=== PATIENT | female | born 1950 | race Caucasian/White ===

== ENCOUNTER → 2016-11-27 | Outpatient (CLI) | payer BC ==
[~2016-11-27] MED LIST: ARTH650T PO; BENA25CA2 PO; BUTACAP78 PO; CLIN300C2 PO; COLA100C3 PO; DITR5TAB PO; DOXY100C PO; GAS-80CH PO; HYDR12.55 PO; MOME50SP; PERCOCET PO; PRED10TA PO; PRED20TA PO; SALI0.653; TUMS500C PO; VITA400T13 PO; VYTO10TA2 PO; [UNRECOGNIZED DRUG - CODE] PO; [UNRECOGNIZED DRUG - CODE] PO
--- NOTE | 2016-11-27 16:15 | REPMRS ---
Patient History The patient states she had a clinical breast exam in 12/06 Patient is postmenopausal, has history of cervical cancer at age 41, and is nulliparous. Family history of colorectal cancer in father at age 64, breast cancer in sister at age 29, colorectal cancer in mother at age 50 or over, breast cancer in maternal aunt at age 65, unknown cancer in maternal grandmother at age 50 or over, and unknown cancer in maternal uncle under age 50. Took hormonal contraceptives for 12 years. Took unspecified hormones for 10 years. Digital Woman Screen Mammo: November 27, 2016 - Exam #: [id number] Bilateral CC and MLO view(s) were taken. Technologist: Paulina Fernandez, Technologist Prior study comparison: September 08, 2014, digital woman screen mammo performed at [facility]. June 09, 2013, bilateral bilat screen digital mammo, performed at [facility] ([facility] FINDINGS: There are scattered fibroglandular densities. There has been no change in the appearance of the mammogram from the prior studies. There is a mild amount of residual fibroglandular tissue which is fairly symmetric. There is no interval development of dominant mass, architectural distortion, or clustered microcalcification suggestive of malignancy. ASSESSMENT: BI-RADS/ACR category 1 mammogram. Negative. Recommendation Routine screening mammogram in 1 year (for women over age 40). This mammogram was interpreted with the aid of an FDA-approved computer-aided dectection system. Electronically Signed By: Natalio Anderson MD 11/27/16 [id number]
== END ==
LOC: M WHC 13:55
PROVIDERS: ATTEND Nurse Practitioner Family
DX: Z12.31 Encounter for screening mammogram for malignant neoplasm of breast (principal); Z78.0 Asymptomatic menopausal state; Z80.3 Family history of malignant neoplasm of breast; Z80.0 Family history of malignant neoplasm of digestive organs; Z85.41 Personal history of malignant neoplasm of cervix uteri; Z92.0 Personal history of contraception; Z92.29 Personal history of other drug therapy

== ENCOUNTER → 2017-02-16 | Outpatient (REF) | payer OTHER ==
[~2017-02-16] MED LIST changes: -ARTH650T PO; +ARTH650T11 PO; +CLEO300C2 PO; -COLA100C3 PO; +COLA100C5 PO; +CRAN250C2 PO; +CRAN400C PO; +MULT1TAB10 PO; +MULTTAB24 PO; +NAPR500T3 PO; +SALI0.6523; -SALI0.653; +SIMV20TA2 PO; +TYLE325T5 PO; +TYLE650T35 PO; +VITA200016 PO; -VYTO10TA2 PO; +VYTO10TA25 PO; +ZETI10TA30 PO; +[UNRECOGNIZED DRUG - CODE] PO; +[UNRECOGNIZED DRUG - OTHER] PO
== END ==
LOC: M SMT 16:57
PROVIDERS: ATTEND Urology
DX: N39.0 Urinary tract infection, site not specified (principal)

== ENCOUNTER 2017-02-21 11:25 | Outpatient (CLI) | payer BC, OTHER ==
[~2017-02-21] VITALS: Ht 165.1 cm; Wt 87.1 kg
[~2017-02-21 11:25] MED LIST changes: -CRAN400C PO; +LIDOCAINE 2% INJ 100 MG/5 ML SDV (FOR ANES.) As Ordered ONE; -MULTTAB24 PO; +NS 1,000 ML IV ONE; +PROPOFOL 200 MG/20 ML VIAL As Ordered ONE; -TYLE325T5 PO; -TYLE650T35 PO; -VITA200016 PO; -[UNRECOGNIZED DRUG - CODE] PO
[2017-02-21] MEDS ORDERED: PROPOFOL 200 MG/20 ML VIAL As Ordered ONE ×2 (12:43→12:46)
--- NOTE | 2017-02-21 12:57 | ROOR ---
Patient Name: Rhonda Marcos Procedure Date: 02/21/2017 12:28 PM Date of : 1950 Age: 66 Room: [facility] Gender: Female Note Status: Finalized Procedure: Total Colonoscopy to Cecum Indications: Colon cancer screening in patient at increased risk: Colorectal cancer in mother, Colon cancer screening in patient at increased risk: Colorectal cancer in father Providers: Jerome Johns MD Referring MD: SOL FERRARI DO Requesting Provider: Medicines: Monitored Anesthesia Care Complications: No immediate complications. Mild Diverticulitis. Procedure: Pre-Anesthesia Assessment: - The heart rate, respiratory rate, oxygen saturations, blood pressure, adequacy of pulmonary ventilation, and response to care were monitored throughout the procedure. The Colonoscope was introduced through the anus and advanced to the cecum, identified by appendiceal orifice and ileocecal valve. The colonoscopy was performed without difficulty. The patient tolerated the procedure well. The quality of the bowel preparation was excellent. Findings: The perianal and digital rectal examinations were normal. Non-bleeding internal hemorrhoids were found during retroflexion. The hemorrhoids were Grade I (internal hemorrhoids that do not prolapse). Multiple small and large-mouthed diverticula were found in the recto-sigmoid colon, sigmoid colon and descending colon. The exam was otherwise without abnormality on direct and retroflexion views. Localized mild inflammation characterized by congestion (edema), erythema and aphthous ulcerations was found in the recto-sigmoid colon. Impression: - Non-bleeding internal hemorrhoids. - Diverticulosis in the recto-sigmoid colon, in the sigmoid colon and in the descending colon. - The examination was otherwise normal on direct and retroflexion views. - Localized mild inflammation was found in the recto-sigmoid colon. - No specimens collected. - The exam was otherwise normal to the cecum. Recommendation: - Patient has a contact number available for emergencies. The signs and symptoms of potential delayed complications were discussed with the patient. Return to normal activities tomorrow. Written discharge instructions were provided to the patient. - High fiber diet. - Discharge patient to home. - Continue present medications. - Repeat colonoscopy in 5 years for screening purposes. - Return to referring physician. - The findings and recommendations were discussed with the patient's family. Jerome Johns MD Jerome Johns MD 02/21/2017 12:57:13 PM This report has been signed electronically. Number of Addenda: 0 Note Initiated On: 02/21/2017 12:28 PM Estimated Blood Loss: Estimated blood loss: none.
[2017-02-21 13:27] VITALS: BP 146/62
[2017-05-01] MEDS ORDERED: CRAN400C PO (13:20)
[2017-05-01] MEDS ORDERED: MULTTAB24 PO (13:20)
[2017-05-01] MEDS ORDERED: TYLE325T5 PO (13:20)
[2017-05-01] MEDS ORDERED: VITA200016 PO (13:20)
[2017-05-01] MEDS ORDERED: TYLE650T35 PO (13:20)
== END 2017-02-21 13:36 | disposition home or self-care (01) ==
LOC: M OPP 11:25
PROVIDERS: ATTEND Internal Medicine Gastroenterology
DX: Z12.11 Encounter for screening for malignant neoplasm of colon (principal); Z80.0 Family history of malignant neoplasm of digestive organs; K64.0 First degree hemorrhoids; K57.30 Diverticulosis of large intestine without perforation or abscess without bleeding; K52.9 Noninfective gastroenteritis and colitis, unspecified; I10 Essential (primary) hypertension; E78.5 Hyperlipidemia, unspecified; R01.1 Cardiac murmur, unspecified; E11.9 Type 2 diabetes mellitus without complications; M19.90 Unspecified osteoarthritis, unspecified site; G43.909 Migraine, unspecified, not intractable, without status migrainosus; Z85.828 Personal history of other malignant neoplasm of skin; Z78.0 Asymptomatic menopausal state; Z87.442 Personal history of urinary calculi; L71.9 Rosacea, unspecified; L65.9 Nonscarring hair loss, unspecified; Z86.19 Personal history of other infectious and parasitic diseases; Z80.3 Family history of malignant neoplasm of breast; Z88.1 Allergy status to other antibiotic agents; Z88.5 Allergy status to narcotic agent; Z91.048 Other nonmedicinal substance allergy status; Z91.040 Latex allergy status; Z88.8 Allergy status to other drugs, medicaments and biological substances; Z88.2 Allergy status to sulfonamides; Z88.0 Allergy status to penicillin

== ENCOUNTER → 2017-03-13 | Outpatient (REF) | payer OTHER ==
[~2017-03-13] MED LIST changes: +CRAN400C PO; -LIDOCAINE 2% INJ 100 MG/5 ML SDV (FOR ANES.) As Ordered ONE; +MULTTAB24 PO; -NS 1,000 ML IV ONE; -PROPOFOL 200 MG/20 ML VIAL As Ordered ONE; +TYLE325T5 PO; +TYLE650T35 PO; +VITA200016 PO; +[UNRECOGNIZED DRUG - CODE] PO
== END ==
LOC: M SMT 17:23
PROVIDERS: ATTEND Urology
DX: R31.0 Gross hematuria (principal)

== ENCOUNTER → 2017-03-15 | Outpatient (CLI) | payer BC, OTHER ==
[2017-03-15 13:43] LABS: ANION GAP 5 MEQ/L (8-16); BLOOD UREA NITROGEN 16 MG/DL (7-18); CALCIUM LEVEL 9.3 MG/DL (8.8-10.2); CARBON DIOXIDE LEVEL 32 MEQ/L (21-32); CHLORIDE LEVEL 106 MEQ/L (98-107); CREATININE FOR GFR 0.76 MG/DL (0.55-1.02); GLOMERULAR FILTRATION RATE > 60.0 (>45); GLUCOSE, FASTING 117 MG/DL (80-110); SODIUM LEVEL 143 MEQ/L (136-145)
== END ==
LOC: M SMT 11:44
PROVIDERS: ATTEND Urology
DX: R31.0 Gross hematuria (principal)

== ENCOUNTER → 2017-03-23 | Outpatient (CLI) | payer BC, OTHER ==
[~2017-03-23] MED LIST changes: +ISOVUE-370 76% 100ML VIAL (Q9967) As Ordered ONE
--- NOTE | 2017-03-23 18:54 | REP ---
CT urogram: CT without and with IV contrast. Without oral contrast. History: Gross hematuria. Comparison CT study is from May 06, 2014. CT contrast dose: 100 ml of intravenous Isovue 370. Findings: The left hip replacement is seen on digital director [employer] radiograph. The bowel gas pattern is unremarkable. The lung bases are clear except for some mild linear fibrosis. The liver and the spleen are normal in size, homogeneous in texture. The gallbladder and the pancreas are unremarkable. There is an 8 mm calculus at the right mid kidney, intrarenal. In the lower pole, there is a 5 mm calculus. No hydronephrosis is seen. There is a 3 mm calculus in the upper pole of the left kidney. No renal mass lesion is seen. The kidneys enhance symmetrically. No cyst is seen. Delayed scan images show no filling defect in either collecting system. The ureters describe a normal course to the bladder. No bladder mass lesion is appreciated. Small and large intestinal bowel loops are unremarkable. There are degenerative spondylosis changes in the lumbar spine. No abdominal wall defect is seen. Impression: Bilateral intrarenal nephrolithiasis as noted above. No hydronephrosis seen. No mass or cyst is observed. Signed by Chauncey Lorenzo MD 03/27/2017 08:18 A
== END ==
LOC: M RAD 12:32
PROVIDERS: ATTEND Urology
DX: R31.0 Gross hematuria (principal); N20.0 Calculus of kidney
CPT/HCPCS: 74178; Q9967

== ENCOUNTER → 2017-04-20 | Outpatient (CLI) | payer BC, OTHER ==
[~2017-04-20] MED LIST changes: -ISOVUE-370 76% 100ML VIAL (Q9967) As Ordered ONE
--- NOTE | 2017-04-20 15:48 | REP ---
MRI LUMBAR SPINE WITHOUT CONTRAST: HISTORY: Spinal stenosis. COMPARISON: 06/16/2015 Decreased signal intensity on T2-weighted images is present in the lumbar intervertebral discs. The discs are decreased in height. These findings are consistent with disc degeneration. A diffuse disc bulge is present at the L1-2 level. There is hypertrophy of the ligamenta flava and posterior articulating facets. There are 3 mm of retrolisthesis of L1 on 2. There is minimal compression of the thecal sac. The L1 nerves exit the neural foramina without compression. A diffuse disc bulge is present at the L2-3 level. There is hypertrophy of the ligamenta flava and posterior articulating facets. These findings produce minimal central canal stenosis. The L2 nerves exit the neural foramina without compression. A diffuse disc bulge is present at the L3-4 level. There is hypertrophy of the ligamenta flava and posterior articulating facets. These findings produce mild central canal stenosis. The L3 nerves exit the neural foramina without compression. A diffuse disc bulge and small central disc protrusion are present at the L4-5 level. There is hypertrophy of the ligamenta flava and posterior articulating facets. There are 5 mm of grade I spondylolisthesis of L4 on L5. These findings produce severe central canal stenosis. There is compression of the L4 nerves in the neural foramina. A diffuse disc bulge and small central disc protrusion are present at the L5-S1 level. The disc protrusion is decreased in size. There is minimal compression of the thecal sac. There is hypertrophy of the posterior articulating facets. There are 5 mm of grade 1 spondylolisthesis of L5 on S1. There is compression of the L5 nerves in the neural foramina. The conus medullaris is normal in appearance terminating at the level of the L1-2 intervertebral disc. Normal signal intensity is present in the lumbar vertebral bodies. IMPRESSION: 1. Diffuse disc bulge and retrolisthesis at the L1-2 level with minimal thecal sac compression. 2. Minimal central canal stenosis at the L2-3 level secondary to disc bulge, ligamentous and facet hypertrophy. 3. Mild central canal stenosis at the L3-4 level secondary to disc bulge, ligamentous and facet hypertrophy. 4. Severe central canal stenosis at the L4-5 level secondary to disc, bulge, ligamentous and facet hypertrophy and grade 1 spondylolisthesis. There is compression of the L4 nerves in the neural foramina. 5. Diffuse disc bulge and small disc protrusion at the L5-S1 level with minimal thecal sac compression. There is grade 1 spondylolisthesis of L5 on S1. There is compression of the L5 nerves in the neural foramina. The disc protrusion is decreased in size. There is no other significant change. Signed by Favian Dumont MD 04/20/2017 03:51 P
== END ==
LOC: M PLARAD 13:21
PROVIDERS: ATTEND Nurse Practitioner Family
DX: M51.37 Other intervertebral disc degeneration, lumbosacral region (principal)

== ENCOUNTER → 2017-04-27 | Outpatient (CLI) | payer BC, OTHER ==
[2017-04-27 12:38] LABS: MEAN CORPUSCULAR HEMOGLOBIN 30.3 pg (27.0-33.0); MEAN CORPUSCULAR HGB CONC 32.7 g/dl (32.0-36.5); MEAN CORPUSCULAR VOLUME 92.5 fl (80.0-96.0); RED CELL DISTRIBUTION WIDTH 12.9 % (11.5-14.5); WHITE BLOOD COUNT 7.7 10^3/uL (4.0-10.0)
[2017-04-27 12:46] LABS: INR 0.92
[2017-04-27 13:01] LABS: ANION GAP 8 MEQ/L (8-16); BLOOD UREA NITROGEN 16 MG/DL (7-18); CALCIUM LEVEL 9.2 MG/DL (8.8-10.2); CARBON DIOXIDE LEVEL 29 MEQ/L (21-32); CHLORIDE LEVEL 103 MEQ/L (98-107); CREATININE FOR GFR 0.63 MG/DL (0.55-1.02); GLOMERULAR FILTRATION RATE > 60.0 (>45); GLUCOSE, FASTING 93 MG/DL (80-110); POTASSIUM SERUM 4.4 MEQ/L (3.5-5.1); SODIUM LEVEL 140 MEQ/L (136-145)
--- NOTE | 2017-04-27 13:02 | REP ---
PA and lateral chest: Comparison is 06/30/2008. There are small focal zones of parenchymal scarring in the lung bases bilaterally, unchanged. The lung kwong otherwise clear. Cardiac size normal. The anaya and mediastinum are unremarkable. There is thoracic scoliosis convex right at the thoracolumbar junction, unchanged. Impression: No acute cardiopulmonary findings. Chronic fibro linear scarring in the lung bases is unchanged. Signed by Natalio Pichardo MD 04/27/2017 12:54 P
--- NOTE | 2017-04-27 17:41 | ECGEPIP ---
Stationary ECG Study [facility] Test Date: 2017-04-27 Pat Name: JAS GOOD Department: Room: - Gender: F Prosthetist: ZELDA : 1950 Requested By: LEONIE Yanes Order Number: [id number] Reading MD: Jaime Morin Measurements Intervals Rudy Rate: 57 P: 2 CA: 153 QRS: 9 QRSD: 96 T: 7 QT: 409 QTc: 401 Interpretive Statements SINUS BRADYCARDIA NO PRIOR Electronically Signed On 04-27-2017 17:41:06 EDT by Jaime Morin
== END ==
LOC: M LAB 11:27
PROVIDERS: ATTEND Urology
DX: Z01.818 Encounter for other preprocedural examination (principal)

== ENCOUNTER 2017-05-03 08:25 | Day surgery (SDC) | payer BC, OTHER ==
[~2017-05-03] VITALS: Ht 165.1 cm; Wt 87.5 kg
[~2017-05-03 08:25] MED LIST changes: -[UNRECOGNIZED DRUG - CODE] PO
[2017-05-03] MEDS ORDERED: LevoFLOXacin IV 500 MG in APPROPRIATE DILUENT 1 EA IV ONE (09:00)
[2017-05-03] MEDS ORDERED: LR 1,000 ML IV SCH ×2 (09:00→12:00)
[2017-05-03] MEDS ORDERED: [UNRECOGNIZED DRUG - CODE] PO (09:57)
[2017-05-03] MEDS ORDERED: fentaNYL 100 MCG/2 ML INJECTION (J3010) As Ordered ONE (10:12)
[2017-05-03] MEDS ORDERED: MIDAZOLAM INJ 2 MG/2 ML VIAL (J2250) As Ordered ONE (10:12)
[2017-05-03] MEDS ORDERED: PROPOFOL 200 MG/20 ML VIAL As Ordered ONE (10:12)
--- NOTE | 2017-05-03 10:50 | REP ---
KUB: Single view. History: Kidney stone. Comparison study: CT exam March 23, 2017. There is a 7 mm calcific opacity overlying the right mid kidney consistent with an infrarenal stone. A smaller calcification is seen at the lower pole on the right. There is a 2-3 mm calculus overlying the upper pole on the left. These findings correlate with the recent CT study. No ureteral stone is seen. The left hip is replaced. There are arthritic changes in the right hip and degenerative changes along with scoliosis is seen in the lumbar spine. Bowel gas pattern is normal. Psoas margins are intact. No sacral or SI joint abnormality is seen. Impression: Bilateral intrarenal nephrolithiasis. Signed by Chauncey Lorenzo MD 05/03/2017 11:59 A
[2017-05-03] MEDS ORDERED: ACETAMINOPHEN TAB 650MG DOSE (2X325MG) PO PRN (12:00)
[2017-05-03] MEDS ORDERED: PERCOCET 5MG/325MG TAB PO PRN (12:00)
[2017-05-03] MEDS ORDERED: ONDANSETRON 4MG/2ML VIAL (J2405) IV ONE (12:45)
[2017-05-03 13:15] VITALS: BP 118/57
--- NOTE | 2017-05-03 17:33 | RO ---
DATE OF PROCEDURE: 05/03/2017 PREPROCEDURE DIAGNOSIS: Right kidney stones. POSTPROCEDURE DIAGNOSIS: Right kidney stones. PROCEDURE: Right extracorporal shock wave lithotripsy. SURGEON: Dr. Kip Pimentel GRAPHIC DESIGN TEACHER: None ANESTHESIA: MAC. OPERATIVE INDICATIONS: This is a 66-year-old female with a long history of kidney stones. On recent imaging she was found to have two nonobstructing right kidney stones, the largest measuring 8 mm and another one 5 mm. It was recommended that she be brought to the operating room for the above listed procedure. DESCRIPTION OF PROCEDURE: The patient was brought to the operating room and MAC anesthesia was administered. Prophylactic antibiotics were infused. She was placed in the supine position in preparation for right sided extracorporal shock wave lithotripsy. Fluoroscopy was utilized to monitor stone position and fragmentation throughout the procedure. Shock waves were then delivered to both kidney stones ungated. There are no arrhythmias. The stones did appear to fragment well. After 2,500 shocks the procedure was concluded. The patient was then awakened from anesthesia and transported to the recovery room in stable condition. ESTIMATED BLOOD LOSS: 0 mL. COMPLICATIONS: None. SPECIMENS: None. PLAN: The patient will followup in the clinic in a few weeks with imaging prior to assess for residual stone burden. FERNANDA
== END 2017-05-03 13:35 | disposition home or self-care (01) ==
LOC: M SDC 08:25
PROVIDERS: ATTEND Urology
DX: N20.0 Calculus of kidney (principal); I10 Essential (primary) hypertension; E78.4 Other hyperlipidemia; Z79.899 Other long term (current) drug therapy; Z88.0 Allergy status to penicillin; Z88.2 Allergy status to sulfonamides; Z91.040 Latex allergy status; Z88.8 Allergy status to other drugs, medicaments and biological substances
CPT/HCPCS: 50590; 74000; J1956; J2250; J2405; J3010

== ENCOUNTER → 2017-12-13 | Outpatient (CLI) | payer MEDICARE, BC | LOC: M WHC 10:31 | DX: Z12.31 Encounter for screening mammogram for malignant neoplasm of breast (principal); Z01.419 Encounter for gynecological examination (general) (routine) without abnormal findings (principal); R92.8 Other abnormal and inconclusive findings on diagnostic imaging of breast; N63.0 Unspecified lump in unspecified breast | CPT/HCPCS: 77067 ==

== ENCOUNTER → 2017-12-20 | Outpatient (CLI) | payer MEDICARE, BC, OTHER | LOC: M RAD 12:13 | DX: N63.20 Unspecified lump in the left breast, unspecified quadrant (principal) | CPT/HCPCS: 77065 ==

== ENCOUNTER → 2018-02-25 | Outpatient (CLI) | payer MEDICARE, BC, OTHER ==
[2018-03-01 00:07] LABS: METANEPHRINE PLASMA 43 pg/mL (0-62); METANEPHRINE TOTAL URINE 171 ug/L (Undefined); METANEPHRINE URINE 188 ug/24 hr (45-290); NORMETANEPHRINE PLASMA 112 pg/mL (0-145); NORMETANEPHRINE TOTAL URINE 449 ug/L (Undefined); NORMETANEPHRINE URINE 494 ug/24 hr (82-500)
== END ==
LOC: M LAB 13:19
DX: L75 Apocrine sweat disorders (principal)
CPT/HCPCS: 84443

== ENCOUNTER → 2018-06-10 | Outpatient (CLI) | payer MEDICARE, BC, OTHER | LOC: M SMT 09:58 | DX: Z87.442 Personal history of urinary calculi (principal) | CPT/HCPCS: 74018; G0463 ==

== ENCOUNTER → 2018-06-24 | Outpatient (CLI) | payer MEDICARE, BC, OTHER | LOC: M RAD 09:13 | DX: R92.8 Other abnormal and inconclusive findings on diagnostic imaging of breast (principal); Z80.3 Family history of malignant neoplasm of breast | CPT/HCPCS: 77065 ==

== ENCOUNTER → 2018-12-13 | Outpatient (CLI) | payer MEDICARE, BC ==
[~2018-12-13] MED LIST changes: +HYDR25TAB PO; +LEVO500T3 PO; +METR-265 PO; +MIRA3350 PO; +NAPR-885 PO; -NAPR500T3 PO; +PRED-351 PO; -PRED10TA PO; -SALI0.6523; +SALI0.6528; +SYST1SOL OU; +VITMTA PO; +[UNRECOGNIZED DRUG - CODE] PO
--- NOTE | 2018-12-13 12:31 | REPMRS ---
Patient History The patient states she had a clinical breast exam in 11/2018. Family history of breast cancer at age 29 in sister, colorectal cancer at age 50 or over in mother, colorectal cancer at age 64 in father, breast cancer at age 65 in maternal aunt, unknown cancer under age 50 in maternal uncle, unknown cancer at age 50 or over in maternal grandmother, breast cancer at age 50 or over in maternal aunt. Took hormonal contraceptives for 12 years. Took unspecified hormones for 10 years. 3D TOMOSYNTHESIS WAS PERFORMED. Digital Woman Screen Mammo: December 13, 2018 - Exam #: [id number] Bilateral CC and MLO view(s) were taken. Technologist: Paulina Fernandez, Technologist Prior study comparison: June 24, 2018, left breast digital mammo diagnostic unilateral, performed at [facility]. December 20, 2017, left breast digital mammo diagnostic unilateral, performed at [facility]. FINDINGS: The breast tissue is heterogeneously dense. This may lower the sensitivity of mammography. There has been no change in the appearance of the mammogram from the prior studies. There is a moderate amount of residual fibroglandular tissue which is fairly symmetric. There is no interval development of dominant mass, areas of architectural distortion, or clustered microcalcification typical of malignancy. Assessment: BI-RADS/ACR category 1 mammogram. Negative Mammogram. Recommendation Routine screening mammogram in 1 year (for women over age 40). This mammogram was interpreted with the aid of an FDA-approved computer-aided dectection system. Electronically Signed By: Natalio Anderson MD 12/13/18 [id number]
== END ==
LOC: M WHC 10:46
PROVIDERS: ATTEND Nurse Practitioner
DX: Z12.31 Encounter for screening mammogram for malignant neoplasm of breast (principal); Z92.0 Personal history of contraception

== ENCOUNTER 2019-04-16 13:33 | Emergency (ER) | payer OTHER, MEDICARE, BC ==
[~2019-04-16] VITALS: Ht 162.6 cm; Wt 82.3 kg
[~2019-04-16 13:33] MED LIST changes: -ARTH650T11 PO; +ARTH650T4 PO; -SIMV20TA2 PO; +SIMV20TA22 PO; +ZETI10TA16 PO; -ZETI10TA30 PO
--- NOTE | 2019-04-16 14:55 | REP ---
Thoracic spine three views: Comparison is a PA and lateral chest dated 04/27/2017. There is thoracic scoliosis convex right at the thoracolumbar junction. This is unchanged. There is degenerative disc disease at every thoracic spine level. This is unchanged. Vertebral body heights and alignment are normal. There is no listhesis. The pedicles are unremarkable. Impression: No compression deformity or listhesis. Scoliosis. Degenerative disc disease throughout the thoracic spine. Electronically Signed by Natalio Pichardo MD 04/16/2019 02:47 P
--- NOTE | 2019-04-16 15:08 | REP ---
CHEST, TWO VIEWS: Two views of the chest are performed and compared to a prior study of 04/27/2017. There are chronic interstitial fibrotic changes in each lung base which are stable when compared to the prior study. There is no acute infiltrate or pleural effusion. No pneumothorax is seen. Heart is normal in size. Mediastinal silhouette is unremarkable and unchanged. There are degenerative changes of the spine without a compression fracture. IMPRESSION: Stable chronic findings without evidence of acute pulmonary disease. Electronically Signed by Natalio Anderson MD 04/16/2019 03:24 P
[2019-04-16 15:50] VITALS: BP 170/78
== END 2019-04-16 15:56 | disposition home or self-care (01) ==
LOC: M ED 13:33 → EDBD 13:33 → M ED 15:56
DX: S29.012A Strain of muscle and tendon of back wall of thorax, initial encounter (principal); S20.211A Contusion of right front wall of thorax, initial encounter; V43.52XA Car driver injured in collision with other type car in traffic accident, initial encounter; Y92.410 Unspecified street and highway as the place of occurrence of the external cause; I10 Essential (primary) hypertension; E78.00 Pure hypercholesterolemia, unspecified; M48.00 Spinal stenosis, site unspecified; Z88.5 Allergy status to narcotic agent; Z88.6 Allergy status to analgesic agent; Z88.1 Allergy status to other antibiotic agents; Z88.0 Allergy status to penicillin; Z88.2 Allergy status to sulfonamides; Z79.899 Other long term (current) drug therapy

== ENCOUNTER → 2019-05-28 | Outpatient (CLI) | payer OTHER ==
[~2019-05-28] MED LIST changes: +ARTH650T11 PO; -ARTH650T4 PO; +SIMV20TA2 PO; -SIMV20TA22 PO
--- NOTE | 2019-05-29 09:02 | REP ---
Clinical: Right hip pain. Technique: Neutral and frog lateral views of the right hip. Findings: Increased sclerosis and mild joint space narrowing with subtle marginal spurring at the acetabulum. No acute fracture dislocation. Surrounding soft tissues are normal. Impression: Mild arthritic changes. Electronically Signed by Wilfredo Fink MD 05/29/2019 08:54 A
--- NOTE | 2019-05-29 09:04 | REP ---
Clinical: Right shoulder pain. Technique: Internal rotation, external rotation, and Y view of the right shoulder. Findings: Mild cortical irregularity at the acromioclavicular joint is appreciated. Glenohumeral joint is relatively normal in appearance. No acute fracture dislocation. Subacromial space is normal. No periarticular calcifications or loose bodies identified. Impression: Essentially age-appropriate examination. Minimal changes at the acromioclavicular joint. Electronically Signed by Wilfredo Fink MD 05/29/2019 08:55 A
== END ==
LOC: M RAD 15:38
PROVIDERS: ATTEND Family Medicine
DX: M25.511 Pain in right shoulder (principal)

== ENCOUNTER → 2019-06-12 | Outpatient (CLI) | payer MEDICARE, BC, OTHER ==
--- NOTE | 2019-06-12 15:28 | REP ---
Single view abdomen: 06/12/2019. Indication: Abdominal pain. History of renal calculi. Comparison: 06/10/2018. Findings: The punctate left renal calculus is unchanged in position. No new calculi are detected. There is no evidence of organomegaly/hydrocephalous. Extensive spondylitic sequelae of the visualized spine are noted. Left total hip arthroplasty is noted. Impression: Stable left renal patricia calculus. No new calculi. Electronically Signed by Serafin Lopez DO 06/12/2019 03:20 P
== END ==
LOC: M RAD 14:52
PROVIDERS: ATTEND Urology
DX: N20.0 Calculus of kidney (principal)

== ENCOUNTER → 2019-07-21 | Outpatient (CLI) | payer OTHER, MEDICARE, BC ==
[~2019-07-21] MED LIST changes: -SIMV20TA2 PO; +SIMV20TA22 PO
--- NOTE | 2019-07-21 14:45 | REP ---
MRI cervical spine: 07/21/2019. Indication: Neck pain. Comparison: None. Technique: Multiplanar short and long TR sequences of the cervical spine were obtained without IV Gadolinium. Findings: Grade 1 anterolisthesis of C4 on C5 and C5 on C6 are present. There is minimal anterolisthesis of T1 on T2 and T2 on T3. There is overall straightening of the cervical lordosis. Disc desiccation and disc space narrowing are present throughout. Multilevel endplate degenerative signal changes are present most pronounced within the posterior aspects of C4 and C6. Atlanto-axial degenerative changes are present without compression of the adjacent medulla/cord. The vertebral artery flow voids are unremarkable. There is no abnormal cord signal. No worrisome marrow signal is present. C2/C3: There is no focal disc herniation or significant spinal canal / neural foraminal narrowing. C3/C4: There is no focal disc herniation or significant spinal canal / neural foraminal narrowing. C4/C5: Diffuse disc uncovering/bulge and bilateral facet arthropathy are present. There is mild narrowing of the spinal canal. Moderate to severe left neural foraminal narrowing is present. The right neural foramen is patent. C5/C6: There is a left paracentral disc protrusion superimposed on a diffuse uncovered/bulging disc. Bilateral facet arthropathy is present. There is moderate right greater than left neural foraminal narrowing. There is minimal flattening of the left ventral lateral cord secondary to the disc herniation. Overall there is mild narrowing of the spinal canal. C6/C7: There is an asymmetric disc osteophyte complex more pronounced on the right with moderate right neural foraminal narrowing. There is mild spinal canal narrowing. The left neural foramen is patent. C7/T1: There is no focal disc herniation or significant spinal canal / neural foraminal narrowing. Impression: Multilevel degenerative sequelae of the cervical spine as described with a small left paracentral C5/C6 disc herniation. Multilevel neural foraminal narrowing is present. Please correlate with radicular level. Electronically Signed by Serafin Lopez DO 07/21/2019 02:37 P
== END ==
LOC: M RAD 12:57
PROVIDERS: ATTEND Physician Assistant
DX: M50.30 Other cervical disc degeneration, unspecified cervical region (principal)

== ENCOUNTER → 2019-12-09 | Outpatient (CLI) | payer MEDICARE, BC, OTHER ==
[~2019-12-09] MED LIST changes: -ARTH650T11 PO; +ARTH650T4 PO
[2019-12-09 14:17] LABS: BASO # 0.1 10^3/uL (0.0-0.2); BASO % 1.2 % (0.0-1.0); EOS # 0.3 10^3/uL (0.0-0.5); EOS % 4.4 % (0.0-3.0); HEMATOCRIT 44.3 % (36.0-47.0); LYMPH # 1.8 10^3/uL (1.5-5.0); LYMPH % 23.4 % (24.0-44.0); MEAN CORPUSCULAR HEMOGLOBIN 31.2 pg (27.0-33.0); MEAN CORPUSCULAR HGB CONC 33.9 g/dl (32.0-36.5); MEAN CORPUSCULAR VOLUME 92.1 fl (80.0-96.0); MONO # 0.7 10^3/uL (0.0-0.8); MONO % 8.9 % (0.0-5.0); NEUTROPHILS # 4.7 10^3/uL (1.5-8.5); NEUTROPHILS % 61.8 % (36.0-66.0); PLATELET COUNT, AUTOMATED 225 10^3/uL (150-450); RED BLOOD COUNT 4.81 10^6/uL (4.00-5.40); WHITE BLOOD COUNT 7.6 10^3/uL (4.0-10.0)
[2019-12-09 14:51] LABS: CHOLESTEROL LEVEL 203 MG/DL (<200); HDL CHOLESTEROL 70 MG/DL (>40); LDL CHOLESTEROL 113 MG/DL (<100); NON-HDL-C 133 MG/DL; RHEUMATOID FACTOR QUANT < 10.0 IU/ML (<15.0); TRIGLYCERIDES LEVEL 101 MG/DL (<150)
[2019-12-10 14:19] LABS: ANTINUCLEAR ANTIBODIES DIRECT Negative (Negative)
== END ==
LOC: M PLALAB 12:24
PROVIDERS: ATTEND Nurse Practitioner
DX: L63.8 Other alopecia areata (principal); R53.83 Other fatigue

== ENCOUNTER → 2020-01-16 | Outpatient (CLI) | payer MEDICARE, BC, OTHER ==
[~2020-01-16] MED LIST changes: +ACET650T61 PO; +ARTH650T11 PO; -ARTH650T4 PO; -TYLE650T35 PO
--- NOTE | 2020-01-16 12:23 | REPMRS ---
Patient History The patient states she had a clinical breast exam in December 2019. Family history of breast cancer at age 29 in sister, colorectal cancer at age 50 or over in mother, colorectal cancer at age 64 in father, breast cancer at age 65 in maternal aunt, unknown cancer under age 50 in maternal uncle, unknown cancer at age 50 or over in maternal grandmother, breast cancer at age 50 or over in maternal aunt. Took hormonal contraceptives for 12 years. Took unspecified hormones for 10 years. 3D TOMOSYNTHESIS WAS PERFORMED. [facility] lifetime risk for breast cancer is 12.9%. VOLPARA DENSITY B. Digital Woman Screen Mammo: January 16, 2020 - Exam #: [id number] Bilateral CC and MLO view(s) were taken. Technologist: Carmleo Devriesologist Prior study comparison: December 13, 2018, bilateral digital woman screen mammo performed at [facility]. June 24, 2018, left breast digital mammo diagnostic unilateral, performed at [facility]. FINDINGS: The breast tissue is heterogeneously dense. This may lower the sensitivity of mammography. There has been no change in the appearance of the mammogram from the prior studies. There is a moderate amount of residual fibroglandular tissue which is fairly symmetric. There is no interval development of dominant mass, areas of architectural distortion, or clustered microcalcification typical of malignancy. Assessment: BI-RADS/ACR category 1 mammogram. Negative Mammogram. Recommendation Routine screening mammogram in 1 year (for women over age 40). This mammogram was interpreted with the aid of an FDA-approved computer-aided dectection system. Electronically Signed By: Natalio Anderson MD 01/16/20 [id number]
== END ==
LOC: M WHC 10:11
PROVIDERS: ATTEND Nurse Practitioner Family
DX: Z12.31 Encounter for screening mammogram for malignant neoplasm of breast (principal); Z80.3 Family history of malignant neoplasm of breast; Z80.0 Family history of malignant neoplasm of digestive organs; Z92.0 Personal history of contraception; Z92.29 Personal history of other drug therapy
CPT/HCPCS: 77063; 77067; G0463

== ENCOUNTER → 2020-06-24 | Outpatient (CLI) | payer MEDICARE, BC, OTHER ==
--- NOTE | 2020-06-24 15:52 | REPPI ---
INDICATION: HX OF KIDNEY STONES. COMPARISON: 06/12/2019 FINDINGS: KUB shows the intestinal gas pattern to be nonspecific. The organ silhouettes insofar as delineated are unremarkable. There is no evidence of free intraperitoneal air. No definite renal calculi are identified. Chronic osseous changes status quo. IMPRESSION: Nonspecific. <Electronically signed by Victor Hugo Vallejo > 06/24/20 [id number]
== END ==
LOC: M PLAIMG 15:05
PROVIDERS: ATTEND Urology
DX: Z87.442 Personal history of urinary calculi (principal)

== ENCOUNTER → 2020-08-19 | Outpatient (CLI) | payer MEDICARE, BC, OTHER ==
[2020-08-19 18:41] LABS: BLOOD UREA NITROGEN 21 MG/DL (7-18); CREATININE FOR GFR 0.69 MG/DL (0.55-1.30); GLOMERULAR FILTRATION RATE > 60.0 (>45)
== END ==
LOC: M PLALAB 14:33
PROVIDERS: ATTEND Physical Medicine & Rehabilitation
DX: M54.31 Sciatica, right side (principal)

== ENCOUNTER → 2020-08-24 | Outpatient (CLI) | payer MEDICARE, BC, OTHER ==
[~2020-08-24] MED LIST changes: +HYDR-3490 PO; -HYDR25TAB PO; +PROHANCE 279.3MG/ML 15ML VIAL As Ordered ONE; +PROHANCE 279.3MG/ML 5ML VIAL As Ordered ONE
--- NOTE | 2020-08-24 11:37 | REPVR ---
PROCEDURE INFORMATION: Exam: MR Lumbar Spine Without and With Contrast. Exam date and time: 08/24/2020 10:16 AM Age: 70 years old Clinical indication: Pain; Lumbago with sciatica; Bilateral; Additional info: Lbp w/ sciatica ? hmp vs stenosis TECHNIQUE: Imaging protocol: Multiplanar magnetic resonance images of the lumbar spine without and with intravenous contrast. Contrast material: PROHANCE; Contrast volume: 16 ml; Contrast route: INTRAVENOUS (IV); COMPARISON: MRI-Spine, L.S. without con 04/20/2017 2:11 PM FINDINGS: Vertebrae: There is a pronounced lumbar levo scoliotic curvature. There is 4 mm of grade 1 retrolisthesis of L1 with respect to L2. There is 3 mm of grade 1 retrolisthesis of L2 with respect to L3 and L3 with respect to L4. There is 3 mm of grade 1 anterolisthesis of L4 with respect to L5. Spinal cord: The conus medullaris terminates at L1. The patient has a congenitally narrowed spinal canal. L1-L2: There is diffuse disc bulging/uncovering related to listhesis. There is moderate facet and ligamentous hypertrophy. There is mild canal stenosis. There is severe right and moderate left neural foraminal narrowing. L2-L3: There is diffuse disc bulging/uncovering related to listhesis. There is severe facet and ligamentous hypertrophy. There is mild canal stenosis. There is mild bilateral neural foraminal narrowing. L3-L4: There is diffuse disc bulging/uncovering related to listhesis. There is severe right and moderate left facet hypertrophy. There is mild bilateral neural foraminal narrowing. L4-L5: There is diffuse disc bulging/uncovering related to listhesis. There is severe facet and ligamentous hypertrophy. There is severe bilateral lateral recess stenosis. There is severe canal stenosis, with a residual diameter 5 mm. There is moderate to severe right and moderate left neural foraminal narrowing. L5-S1: There is diffuse disc bulging. There is severe facet hypertrophy. There is mild bilateral lateral recess stenosis. There is mild canal stenosis. There is moderate to severe right and severe left neural foraminal narrowing. Soft tissues: Unremarkable. 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 Changes contribute to multilevel acquired canal stenosis, most pronounced at L4/5, where it is severe. There is multilevel moderate to severe neural foraminal narrowing. Electronically signed by: Ophelia Villa On 08/24/2020 11:37:19 AM
== END ==
LOC: M RAD 08:45
PROVIDERS: ATTEND Physical Medicine & Rehabilitation
DX: M54.31 Sciatica, right side (principal); M53.3 Sacrococcygeal disorders, not elsewhere classified
CPT/HCPCS: 72158; A9576

== ENCOUNTER → 2021-01-18 | Outpatient (CLI) | payer MEDICARE, BC, OTHER ==
[~2021-01-18] MED LIST changes: -PROHANCE 279.3MG/ML 15ML VIAL As Ordered ONE; -PROHANCE 279.3MG/ML 5ML VIAL As Ordered ONE
--- NOTE | 2021-01-18 12:01 | REP ---
INDICATION: SCR MAMMO. COMPARISON: Multiple TECHNIQUE: Digital screening mammography was carried out bilaterally in the CC and MLO projections using both 2D and 3D modalities and compared to the prior exams. By history, the patient has no complaints of a palpable abnormality or other significant breast complaints. FINDINGS: The breasts are unchanged in size and shape. Once again, scattered dense heterogenous fibroglandular elements are seen bilaterally. In the right breast centrally on both CC and MLO projections there is a small jean grouping of calcifications. No other suspicious features are seen in either breast. There are no jean soft tissue densities or spiculated masses. There is no internal architectural distortion. There is no skin thickening or nipple retraction. The Volpara volumetric breast density pattern is b. IMPRESSION: BIRADS/ACR category 0 mammogram seen in the right breast there is a new grouping of calcifications as described above for which diagnostic digital magnified spot compression views are recommended in the CC and MLO projections. This patient's Tyrer-Cuzick lifetime breast cancer risk assessment score is 12.2%. This mammogram was interpreted with the aid of an FDA-approved computer-aided detection system. The patient states she had a clinical breast exam in December 2020. The patient letter being requested is M0. RECOMMENDATION: As above <Electronically signed by Victor Hugo Vallejo > 01/18/21 [id number]
== END ==
LOC: M WHC 10:07
PROVIDERS: ATTEND Nurse Practitioner Women's Health
DX: Z12.31 Encounter for screening mammogram for malignant neoplasm of breast (principal); R92.1 Mammographic calcification found on diagnostic imaging of breast
CPT/HCPCS: 77063; 77067; G0101

== ENCOUNTER → 2021-01-21 | Outpatient (CLI) | payer MEDICARE, BC, OTHER ==
--- NOTE | 2021-01-21 09:26 | REPVR ---
PROCEDURE INFORMATION: Exam: CT Maxillofacial Without Contrast, Sinus Exam date and time: 01/21/2021 8:48 AM Age: 70 years old Clinical indication: Sinusitis; Chronic; Additional info: Chronic maxillary sinusitis TECHNIQUE: Imaging protocol: CT Maxillofacial without contrast. Focus on the sinuses. Radiation optimization: All CT scans at this facility use at least one of these dose optimization techniques: automated exposure control; mA and/or kV adjustment per patient size (includes targeted exams where dose is matched to clinical indication); or iterative reconstruction. COMPARISON: CT Maxilofacial w/out contrast 03/25/2014 9:40 AM FINDINGS: Frontal sinuses: Congenitally underpneumatized right frontal sinus. No air-fluid level in the left frontal sinus. Ethmoid air cells: Normal. No air-fluid levels. Sphenoid sinuses: Normal. No air-fluid levels. Maxillary sinuses: Normal. No air-fluid levels. No mucosal thickening. Ostiomeatal units are patent. Nasal cavity/Septum: Unremarkable. Orbital cavity: Orbits are normal. Globes are unremarkable. Bones/joints: Subtle chronic fracture deformity of the nasal bone. Mild benign hyperostosis frontalis internus. Soft tissues: Unremarkable. IMPRESSION: No evidence of sinusitis. Electronically signed by: Cecilia Richards On 01/21/2021 09:25:51 AM
== END ==
LOC: M RAD 08:32
PROVIDERS: ATTEND Otolaryngology
DX: J32.0 Chronic maxillary sinusitis (principal)

== ENCOUNTER → 2021-01-26 | Outpatient (CLI) | payer MEDICARE, BC, OTHER ==
--- NOTE | 2021-01-26 16:11 | REP ---
INDICATION: RIGHT BREAST ADD VIEWS. COMPARISON: Comparison mammography January 18, 2021 was BI-RADS category 0 for microcalcifications. TECHNIQUE: Magnified focal spot-compression CC, true mediolateral, and MLO views of the right breast are obtained. This mammogram was interpreted with the aid of an FDA-approved computer-aided detection system. FINDINGS: Magnified focal spot-compression images of the right breast confirm the presence of a grouping of 8-9 punctate microcalcifications in the right breast laterally at approximately the 9 o'clock position middle 3rd. These must be regarded as somewhat suspicious. Scattered fibroglandular elements are seen. No other mammographically suspicious finding. The Volpara volumetric breast density pattern is b. IMPRESSION: BIRADS/ACR category 4 suspicious right breast mammographic findings. This patient's Tyrer-Cuzick lifetime breast cancer risk assessment score is 12.2%. RECOMMENDATION: Stereotactic needle biopsy right breast for micro calcific grouping with marker clip placement and post clip placement mammography recommended.. The patient letter being requested is M4. <Electronically signed by Eitan Lorenzo > 01/26/21 [id number]
== END ==
LOC: M WHC 15:29
PROVIDERS: ATTEND Nurse Practitioner Women's Health
DX: Z12.31 Encounter for screening mammogram for malignant neoplasm of breast (principal); N64.59 Other signs and symptoms in breast

== ENCOUNTER → 2021-02-08 | Outpatient (CLI) | payer MEDICARE, BC, OTHER ==
[2021-02-08 15:10] VITALS: BP 136/76
--- NOTE | 2021-02-08 15:44 | REP ---
INDICATION: R92.0 ABN MAMMO RT BREAST W/CALCIFICATION,STEREOTACTIC BX. COMPARISON: Comparison mammography is from January 26, 2021.. TECHNIQUE: Two views, specimen radiography right breast. FINDINGS: Specimen radiography demonstrates the micro calcific target contained within 1 of the withdrawn breast specimens. There is another microcalcification in 1 of the other specimens. IMPRESSION: The micro calcific target is removed and contained within 1 of the specimens. <Electronically signed by Eitan Lorenzo > 02/08/21 [id number]
--- NOTE | 2021-02-08 15:53 | REP ---
INDICATION: R92.0 ABN MAMMO RT BREAST W/CALCIFICATION,POST STEREOTACTIC. Marker clip placement views. COMPARISON: Comparison mammography January 26, 2021. TECHNIQUE: Craniocaudal and mediolateral views of the right breast are obtained. FINDINGS: On the CC view the needle biopsy marker clip is in good position relative to the location of the micro calcific target. The micro calcific target has been removed and is visible in its entirety on the specimen radiograph. On the medial-lateral view, the marker clip is felt to be 2 cm caudal to the location of the target. There is no evidence of hematoma. IMPRESSION: Marker clip is felt to be 2.0 cm caudal to the location of the target grouping which has been removed in its entirety. <Electronically signed by Eitan Lorenzo > 02/08/21 [id number]
--- NOTE | 2021-02-08 16:56 | REP ---
INDICATION: R92.0 ABN MAMMO RT BREAST W/CALCIFICATION,STEREOTACTIC BX. COMPARISON: None. TECHNIQUE: The procedure was performed under the direct supervision of Dr. Lorenzo. The patient has a history of a grouping of punctate microcalcifications in the right breast laterally at approximately the 9 o'clock position middle 3rd seen on a previous mammogram dated 01/26/2021. The risks and benefits of the procedure were explained to the patient and informed consent was obtained. A craniocaudal approach was utilized. The calcifications were localized using stereotactic mammographic guidance. 10 mL of 1% Xylocaine was used as a local anesthetic. A 10 gauge, suction assisted Mammotome needle was inserted and 6 core biopsy samples were obtained. Specimen radiograph demonstrates the presence of calcifications to be within the specimen. A marker clip(HydroMARK shape 3) was placed at the biopsy site. The patient tolerated the procedure well and there were no immediate complications. After the appropriate amount of monitored convalescence, the patient was discharged from the department. EBL: Less than 3 cc FINDINGS: None IMPRESSION: Stereotactic right breast biopsy with marker clip placement.(HydroMARK shape 3) <Electronically signed by Adam Reyes > 02/08/21 [id number] <Electronically signed by Eitan Lorenzo > 02/08/21 [id number]
== END ==
LOC: M WHCPRO 06:46
PROVIDERS: ATTEND Nurse Practitioner Women's Health
DX: R92.0 Mammographic microcalcification found on diagnostic imaging of breast (principal)

== ENCOUNTER → 2021-02-10 | Outpatient (CLI) | payer MEDICARE, BC, OTHER ==
[~2021-02-10] MED LIST changes: -DOXY100C PO; +DOXY100C3 PO
[2021-02-10 15:36] LABS: INR 0.89; PROTHROMBIN TIME 12.2 SECONDS (12.5-14.3)
[2021-02-10 15:37] LABS: PARTIAL THROMBOPLASTIN TIME 29.6 SECONDS (24.2-38.5)
== END ==
LOC: M PLALAB 12:21
PROVIDERS: ATTEND Physician Assistant
DX: M47.896 Other spondylosis, lumbar region (principal)

== ENCOUNTER → 2021-04-05 | Outpatient (CLI) | payer MEDICARE, BC, OTHER ==
[2021-04-05 15:27] LABS: PLATELET COUNT, AUTOMATED 314 10^3/uL (150-450)
[2021-04-05 15:41] LABS: INR 0.95; PARTIAL THROMBOPLASTIN TIME 31.1 SECONDS (25.9-37.0); PROTHROMBIN TIME 13.1 SECONDS (12.7-14.5)
== END ==
LOC: M PLALAB 13:04
PROVIDERS: ATTEND Physician Assistant
DX: M47.896 Other spondylosis, lumbar region (principal)

== ENCOUNTER → 2021-05-17 | Outpatient (CLI) | payer MEDICARE, BC, OTHER ==
[2021-05-17 18:44] LABS: BLOOD UREA NITROGEN 16 MG/DL (7-18); CREATININE FOR GFR 0.62 MG/DL (0.55-1.30); GLOMERULAR FILTRATION RATE > 60.0 (>45)
== END ==
LOC: M PLALAB 14:40
PROVIDERS: ATTEND Physician Assistant
DX: M47.896 Other spondylosis, lumbar region (principal)

== ENCOUNTER → 2021-06-07 | Outpatient (CLI) | payer MEDICARE, BC, OTHER ==
[2021-06-07 17:20] LABS: HEMATOCRIT 41.7 % (36.0-47.0); HEMOGLOBIN 13.6 g/dl (12.0-15.5); MEAN CORPUSCULAR HEMOGLOBIN 30.7 pg (27.0-33.0); MEAN CORPUSCULAR HGB CONC 32.6 g/dl (32.0-36.5); MEAN CORPUSCULAR VOLUME 94.1 fl (80.0-96.0); PLATELET COUNT, AUTOMATED 288 10^3/uL (150-450); RED BLOOD COUNT 4.43 10^6/uL (4.00-5.40); WHITE BLOOD COUNT 8.2 10^3/uL (4.0-10.0)
[2021-06-07 18:28] LABS: ERYTHROCYTE SEDIMENTATION RATE 17 mm/hr (0-30)
== END ==
LOC: M PLALAB 14:35
PROVIDERS: ATTEND Physician Assistant
DX: M48.061 Spinal stenosis, lumbar region without neurogenic claudication (principal)

== ENCOUNTER → 2021-06-24 | Outpatient (CLI) | payer MEDICARE, BC, OTHER ==
--- NOTE | 2021-06-24 15:04 | REP ---
INDICATION: CALCULUS OF KIDNEY. COMPARISON: 06/24/2020 FINDINGS: KUB shows the intestinal gas pattern to be nonspecific. The organ silhouettes insofar as delineated are unremarkable. There is no evidence of free intraperitoneal air. No abnormal calcifications are identifiable. There is no significant change compared to the prior exam. IMPRESSION: Nonspecific. <Electronically signed by Victor Hugo Vallejo > 06/24/21 [id number]
== END ==
LOC: M PLAIMG 14:30
PROVIDERS: ATTEND Urology
DX: N20.0 Calculus of kidney (principal)

== ENCOUNTER → 2021-09-22 | Outpatient (CLI) | payer MEDICARE, BC, OTHER ==
[~2021-09-22] MED LIST changes: -LEVO500T3 PO; +LEVO500T4 PO; -MOME50SP; +NASO50SP3
[2021-09-22 15:26] LABS: HEMOGLOBIN 14.7 g/dl (12.0-15.5); MEAN CORPUSCULAR HEMOGLOBIN 30.6 pg (27.0-33.0); MEAN CORPUSCULAR HGB CONC 32.7 g/dl (32.0-36.5); MEAN CORPUSCULAR VOLUME 93.8 fl (80.0-96.0); PLATELET COUNT, AUTOMATED 289 10^3/uL (150-450); WHITE BLOOD COUNT 7.6 10^3/uL (4.0-10.0)
[2021-09-22 16:29] LABS: ERYTHROCYTE SEDIMENTATION RATE 12 mm/hr (0-30)
== END ==
LOC: M PLALAB 13:17
PROVIDERS: ATTEND Physician Assistant
DX: M48.061 Spinal stenosis, lumbar region without neurogenic claudication (principal)

== ENCOUNTER → 2021-09-26 | Outpatient (CLI) | payer MEDICARE, BC, OTHER | LOC: M RAD 09:20 | PROVIDERS: ATTEND Physician Assistant | DX: M25.552 Pain in left hip (principal) | CPT/HCPCS: 78315; A9503 ==

== ENCOUNTER → 2022-03-31 | Outpatient (CLI) | payer MEDICARE, OTHER ==
[~2022-03-31] MED LIST changes: +EZET-20 PO; +LEVO1TAB39 PO; -LEVO500T4 PO; -VYTO10TA25 PO
== END ==
LOC: M WHC 13:08
PROVIDERS: ATTEND Nurse Practitioner Family
DX: Z12.31 Encounter for screening mammogram for malignant neoplasm of breast (principal)

== ENCOUNTER → 2022-05-18 | Outpatient (CLI) | payer MEDICARE, BC, OTHER ==
[2022-05-18 16:21] LABS: BLOOD UREA NITROGEN 18 MG/DL (7-18); CREATININE FOR GFR 0.72 MG/DL (0.55-1.30); GLOMERULAR FILTRATION RATE > 60.0 (>45)
== END ==
LOC: M PLALAB 14:06
PROVIDERS: ATTEND Nurse Practitioner Family
DX: M25.541 Pain in joints of right hand (principal)

== ENCOUNTER → 2022-05-25 | Outpatient (CLI) | payer MEDICARE, BC, OTHER ==
[2022-05-25 16:17] LABS: PLATELET COUNT, AUTOMATED 239 10^3/uL (150-450)
[2022-05-25 16:44] LABS: INR 0.89; PROTHROMBIN TIME 12.2 SECONDS (12.5-14.5)
[2022-05-25 16:45] LABS: PARTIAL THROMBOPLASTIN TIME 28.6 SECONDS (24.8-34.2)
== END ==
LOC: M LAB 15:49
PROVIDERS: ATTEND Physician Assistant
DX: M48.062 Spinal stenosis, lumbar region with neurogenic claudication (principal)

== ENCOUNTER → 2022-06-30 | Outpatient (CLI) | payer MEDICARE, BC, OTHER | LOC: M PLAIMG 13:20 | PROVIDERS: ATTEND Urology | DX: N20.0 Calculus of kidney (principal) ==

== ENCOUNTER 2022-07-06 18:06 | Emergency (ER) | payer OTHER, MEDICARE, BC ==
[2022-07-06 20:39] VITALS: BP 136/74
== END 2022-07-06 20:42 | disposition home or self-care (01) ==
LOC: M ED 18:06 → EDBD 18:06 → M ED 20:42
DX: S40.011A Contusion of right shoulder, initial encounter (principal); S70.01XA Contusion of right hip, initial encounter; W01.0XXA Fall on same level from slipping, tripping and stumbling without subsequent striking against object, initial encounter; Y92.512 Supermarket, store or market as the place of occurrence of the external cause; E04.1 Nontoxic single thyroid nodule; E11.9 Type 2 diabetes mellitus without complications; I10 Essential (primary) hypertension; E78.5 Hyperlipidemia, unspecified; G43.909 Migraine, unspecified, not intractable, without status migrainosus; R01.1 Cardiac murmur, unspecified; Z88.0 Allergy status to penicillin; Z88.1 Allergy status to other antibiotic agents; Z88.2 Allergy status to sulfonamides; Z88.6 Allergy status to analgesic agent; Z88.8 Allergy status to other drugs, medicaments and biological substances; Z91.048 Other nonmedicinal substance allergy status; Z91.040 Latex allergy status; Z79.899 Other long term (current) drug therapy

== ENCOUNTER → 2022-09-04 | Outpatient (REF) | payer MEDICARE, BC, OTHER ==
[~2022-09-04] MED LIST changes: +CETI10CA13 PO; +CLIN-250 PO; +EZET1TAB96 PO; +IMMUNE FACTOR PO; +TRAV2.5D OU; +VENL75TA2 PO; +[UNRECOGNIZED DRUG - REMARK] PO
== END ==
LOC: M LAB REF 14:32
PROVIDERS: ATTEND Internal Medicine Gastroenterology
DX: K59.1 Functional diarrhea (principal); Z80.0 Family history of malignant neoplasm of digestive organs

== ENCOUNTER → 2022-09-15 | Outpatient (CLI) | payer MEDICARE, BC, OTHER | LOC: M LABSMTC 11:09 | PROVIDERS: ATTEND Anesthesiology | DX: Z01.818 Encounter for other preprocedural examination (principal); Z11.52 Encounter for screening for COVID-19 ==

== ENCOUNTER → 2022-09-15 | Outpatient (CLI) | payer MEDICARE, BC, OTHER | LOC: M LABSMTC 10:58 | PROVIDERS: ATTEND Anesthesiology | DX: Z53.9 Procedure and treatment not carried out, unspecified reason (principal) ==

== ENCOUNTER 2022-09-18 10:30 | Day surgery (SDC) | payer MEDICARE, BC, OTHER ==
[~2022-09-18] VITALS: Ht 162.6 cm; Wt 75.7 kg
[~2022-09-18 10:30] MED LIST changes: +NS 1,000 ML IV ONE
[2022-09-18] MEDS ORDERED: LIDOCAINE 2% 100MG/5ML SDV (FOR ANES.) As Ordered ONE (11:56)
[2022-09-18] MEDS ORDERED: propofoL 200 MG/20 ML VIAL As Ordered ONE ×2 (11:56→12:19)
[2022-09-18 13:15] VITALS: BP 171/75
== END 2022-09-18 13:22 | disposition home or self-care (01) ==
LOC: M OPP 10:30
PROVIDERS: ATTEND Internal Medicine Gastroenterology
DX: K64.0 First degree hemorrhoids (principal); K57.30 Diverticulosis of large intestine without perforation or abscess without bleeding; R19.7 Diarrhea, unspecified; K22.89 Other specified disease of esophagus; K44.9 Diaphragmatic hernia without obstruction or gangrene; K25.9 Gastric ulcer, unspecified as acute or chronic, without hemorrhage or perforation; E78.5 Hyperlipidemia, unspecified; I10 Essential (primary) hypertension; R01.1 Cardiac murmur, unspecified; G43.909 Migraine, unspecified, not intractable, without status migrainosus; Z79.1 Long term (current) use of non-steroidal anti-inflammatories (NSAID); Z79.899 Other long term (current) drug therapy; Z88.0 Allergy status to penicillin; Z88.1 Allergy status to other antibiotic agents; Z88.3 Allergy status to other anti-infective agents; Z88.6 Allergy status to analgesic agent; Z88.8 Allergy status to other drugs, medicaments and biological substances; Z91.040 Latex allergy status; Z87.19 Personal history of other diseases of the digestive system; Z87.442 Personal history of urinary calculi

== ENCOUNTER → 2023-04-04 | Outpatient (CLI) | payer MEDICARE, BC, OTHER ==
[~2023-04-04] MED LIST changes: +EZET10TA58 PO; -NS 1,000 ML IV ONE; -ZETI10TA16 PO
== END ==
LOC: M WHC 13:05
PROVIDERS: ATTEND Nurse Practitioner Family
DX: Z12.31 Encounter for screening mammogram for malignant neoplasm of breast (principal); Z80.3 Family history of malignant neoplasm of breast

== ENCOUNTER → 2023-06-29 | Outpatient (CLI) | payer MEDICARE, BC, OTHER | LOC: M PLAIMG 15:39 | PROVIDERS: ATTEND Urology | DX: N20.0 Calculus of kidney (principal) ==

== ENCOUNTER 2023-09-26 17:21 | Emergency (ER) | payer MEDICARE, BC, OTHER ==
[~2023-09-26] VITALS: Ht 160 cm; Wt 72.0 kg
[2023-09-26 17:22] VITALS: BP 186/85; TEMP 98.2; O2SAT 96
== END 2023-09-26 20:23 | disposition left against medical advice (07) ==
LOC: M ED 17:21
DX: Z53.21 Procedure and treatment not carried out due to patient leaving prior to being seen by health care provider (principal)

== ENCOUNTER → 2024-05-13 | Outpatient (REF) | payer MEDICARE, BC ==
[~2024-05-13] MED LIST changes: -CRAN400C PO; +CRANBERRY400 MG PO
[2024-05-15 16:21] LABS: HPV APTIMA Not Detected (Not Detected)
== END ==
LOC: M SFHCWAGY 15:05
PROVIDERS: ATTEND Nurse Practitioner Family
DX: Z12.72 Encounter for screening for malignant neoplasm of vagina (principal); N95.2 Postmenopausal atrophic vaginitis
CPT/HCPCS: 87624; G0123

== ENCOUNTER → 2024-05-13 | Outpatient (CLI) | payer MEDICARE, BC | LOC: M WHC 10:41 | PROVIDERS: ATTEND Nurse Practitioner Family | DX: Z12.31 Encounter for screening mammogram for malignant neoplasm of breast (principal); R92.323 Mammographic fibroglandular density, bilateral breasts ==

== ENCOUNTER → 2024-07-01 | Outpatient (CLI) | payer MEDICARE, BC | LOC: M PLAIMG 12:47 | PROVIDERS: ATTEND Urology | DX: N20.0 Calculus of kidney (principal) ==

== ENCOUNTER → 2024-09-03 | Outpatient (CLI) | payer MEDICARE, BC | LOC: M WUC 14:04 | PROVIDERS: ATTEND Nurse Practitioner Family | DX: T84.032A Mechanical loosening of internal right knee prosthetic joint, initial encounter (principal); Y83.1 Surgical operation with implant of artificial internal device as the cause of abnormal reaction of the patient, or of later complication, without mention of misadventure at the time of the procedure ==

== ENCOUNTER → 2025-05-15 | Outpatient (CLI) | payer MEDICARE, BC | LOC: M WHC 14:18 | PROVIDERS: ATTEND Physician Assistant Medical | DX: Z12.31 Encounter for screening mammogram for malignant neoplasm of breast (principal) ==

== ENCOUNTER → 2025-06-30 | Outpatient (CLI) | payer MEDICARE, BC | LOC: M PLAIMG 15:40 | PROVIDERS: ATTEND Urology | DX: N20.0 Calculus of kidney (principal) ==